=== PATIENT | male | born 1995 | race American Indian/Alaskan Native ===

== ENCOUNTER 2016-08-10 19:36 | Emergency (ER) | payer SELFPAY | END 2016-08-10 19:45 | disposition left against medical advice (07) | LOC: ED 19:36 | DX: S09.93XA Unspecified injury of face, initial encounter (principal); Y08.89XA Assault by other specified means, initial encounter; Y93.89 Activity, other specified; Y99.9 Unspecified external cause status; Y92.89 Other specified places as the place of occurrence of the external cause; Z53.21 Procedure and treatment not carried out due to patient leaving prior to being seen by health care provider ==

== ENCOUNTER 2016-11-09 20:54 | Emergency (ER) | payer OTHER ==
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
[2016-11-10] MEDS ORDERED: TYLENOL PO ONE (00:29)
[2016-11-10 00:51] VITALS: BP 109/72
== END 2016-11-10 01:10 | disposition home or self-care (01) ==
LOC: ED 20:54
DX: M54.2 Cervicalgia (principal); F17.210 Nicotine dependence, cigarettes, uncomplicated; V49.9XXA Car occupant (driver) (passenger) injured in unspecified traffic accident, initial encounter; Y93.89 Activity, other specified; Y92.410 Unspecified street and highway as the place of occurrence of the external cause; Y99.8 Other external cause status
CPT/HCPCS: 70450; 72125